=== PATIENT | female | born 1980 | race Two or more races ===

== ENCOUNTER 2017-12-13 22:57 | Emergency (ER) | payer OTHER ==
[~2017-12-13] VITALS: Ht 165.1 cm; Wt 50.3 kg
[2017-12-13 23:45] VITALS: BP 151/79
== END 2017-12-14 02:19 | disposition home or self-care (01) ==
LOC: ER 23:00
DX: S61.210A Laceration without foreign body of right index finger without damage to nail, initial encounter (principal); W25.XXXA Contact with sharp glass, initial encounter; Y93.89 Activity, other specified; Y99.8 Other external cause status; Y92.89 Other specified places as the place of occurrence of the external cause
CPT/HCPCS: 73140